=== PATIENT | female | born 1985 | race Caucasian/White ===

== ENCOUNTER 2017-09-04 09:42 | Inpatient (IN) | payer SELFPAY ==
[2017-09-04] MEDS: ONDANSETRON (ODT) 4 MG TAB ODT (10:51)
[2017-09-04] MEDS: HYDROCODONE/APAP (5/325) TAB PO ×2 (10:51→16:32)
[2017-09-04 11:04] LABS: ADD MAN DIFF? NO
[2017-09-04 11:11] LABS: ABNORMAL IP MESSAGE 1; BASOPHILS % 0.5 % (0.0-2.0); EOSINOPHILS # 0.2 10^3/ul (0.0-0.5); EOSINOPHILS % 2.1 % (0.0-7.0); HEMATOCRIT 34.3 % (37.0-47.0); HEMOGLOBIN 9.3 g/dl (12.0-16.0); LYMPHOCYTES # 2.9 10^3/ul (0.8-2.9); LYMPHOCYTES % 33.5 % (15.0-51.0); MEAN CORPUSCULAR HEMOGLOBIN 18.3 pg (29.0-33.0); MEAN CORPUSCULAR HGB CONC 27.1 g/dl (32.0-37.0); MEAN CORPUSCULAR VOLUME 67.7 fl (82.0-101.0); MEAN PLATELET VOLUME 9.5 fl (7.4-10.4); MONOCYTE # 0.4 10^3/ul (0.3-0.9); MONOCYTES % 4.5 % (0.0-11.0); NEUTROPHIL # 5.1 10^3/ul (1.6-7.5); NEUTROPHILS % 59.1 % (39.0-77.0); PLATELET COUNT 353 10^3/UL (140-415); RED BLOOD COUNT 5.07 10^6/ul (4.20-5.40); RED CELL DISTRIBUTION WIDTH 20.8 % (11.5-14.5)
[2017-09-04 11:11] LABS: WHITE BLOOD COUNT 8.7 10^3/ul (4.8-10.8)
[2017-09-04 11:12] LABS: POSITIVE DIFF @See below
[2017-09-04 11:14] LABS: ADD UMIC YES; UR ASCORBIC ACID NEGATIVE (NEGATIVE); UR BILIRUBIN (Dip) NEGATIVE (NEGATIVE); UR BLOOD (Dip) 2+ mg/dL (NEGATIVE); UR CLARITY SLIGHTLY CLOUDY (CLEAR); UR COLOR YELLOW (YELLOW); UR GLUCOSE (Dip) NEGATIVE (NEGATIVE); UR KETONES (Dip) NEGATIVE (NEGATIVE); UR LEUKOCYTE ESTERASE (Dip) 3+ Leu/ul (NEGATIVE); UR NITRITE (Dip) NEGATIVE (NEGATIVE); UR RBC 11 /HPF (0-5); UR SPECIFIC GRAVITY (Dip) 1.018 (1.003-1.030); UR SQUAMOUS EPITHELIAL CELL FEW /HPF (FEW); UR TOTAL PROTEIN (Dip) NEGATIVE (NEGATIVE); UR UROBILINOGEN (Dip) NEGATIVE (NEGATIVE); UR WBC 13 /HPF (0-5)
[2017-09-04 11:31] LABS: ALANINE AMINOTRANSFERASE 150 IU/L (13-69); ALBUMIN 4.1 g/dl (3.3-4.9); ALBUMIN/GLOBULIN RATIO 1.02; ALKALINE PHOSPHATASE 83 IU/L (42-121); ANION GAP 15 (8-16); ASPARTATE AMINO TRANSFERASE 82 IU/L (15-46); BLOOD UREA NITROGEN 11 mg/dl (7-20); CALCIUM 8.8 mg/dl (8.4-10.2); CARBON DIOXIDE 28 mmol/L (21-31); CHLORIDE 104 mmol/L (97-110); CREATININE 0.71 mg/dl (0.44-1.00); GLUCOSE 113 mg/dl (70-220); LIPASE 93 U/L (23-300); POTASSIUM 4.6 mmol/L (3.5-5.1); SODIUM 142 mmol/L (135-144); TOTAL PROTEIN 8.1 g/dl (6.1-8.1)
[2017-09-04] MEDS: PIPER-TAZO 3.375 GM IV (PMX) 100 ML IVPB (13:02)
[2017-09-04] MEDS ORDERED: NACL 0.9% 3 ML SYG IV (15:30)
[2017-09-04 15:49] LABS: IRON 28 ug/dl (35-150)
[2017-09-04 15:59] LABS: % IRON SATURATION 6 % SAT (22-52); TOTAL IRON BINDING CAPACITY 461 ug/dl (241-421)
[2017-09-04] MEDS: SOD CHLORIDE 0.45% 1,000 ML IV (16:19)
[2017-09-04 18:11] LABS: FERRITIN 16.8 ng/ml (6.2-137.0)
[2017-09-04] MEDS: IBUPROFEN 600 MG TAB PO (21:42)
[2017-09-05] MEDS: SOD CHLORIDE 0.45% 1,000 ML IV ×4 (01:21→21:12)
[2017-09-05 07:23] LABS: ADD MAN DIFF? NO
[2017-09-05 07:35] LABS: ABNORMAL IP MESSAGE 1; BASOPHILS % 0.5 % (0.0-2.0); EOSINOPHILS # 0.2 10^3/ul (0.0-0.5); EOSINOPHILS % 2.9 % (0.0-7.0); HEMATOCRIT 32.2 % (37.0-47.0); HEMOGLOBIN 8.8 g/dl (12.0-16.0); LYMPHOCYTES # 2.1 10^3/ul (0.8-2.9); LYMPHOCYTES % 34.7 % (15.0-51.0); MEAN CORPUSCULAR HEMOGLOBIN 18.6 pg (29.0-33.0); MEAN CORPUSCULAR HGB CONC 27.3 g/dl (32.0-37.0); MEAN CORPUSCULAR VOLUME 68.2 fl (82.0-101.0); MEAN PLATELET VOLUME 10.4 fl (7.4-10.4); MONOCYTE # 0.3 10^3/ul (0.3-0.9); MONOCYTES % 4.7 % (0.0-11.0); NEUTROPHIL # 3.4 10^3/ul (1.6-7.5); NEUTROPHILS % 56.9 % (39.0-77.0); PLATELET COUNT 326 10^3/UL (140-415); RED BLOOD COUNT 4.72 10^6/ul (4.20-5.40); RED CELL DISTRIBUTION WIDTH 21.3 % (11.5-14.5)
[2017-09-05 07:35] LABS: WHITE BLOOD COUNT 5.9 10^3/ul (4.8-10.8)
[2017-09-05 07:52] LABS: ALANINE AMINOTRANSFERASE 148 IU/L (13-69); ALBUMIN 3.5 g/dl (3.3-4.9); ALKALINE PHOSPHATASE 71 IU/L (42-121); ANION GAP 11 (8-16); ASPARTATE AMINO TRANSFERASE 88 IU/L (15-46); BLOOD UREA NITROGEN 13 mg/dl (7-20); CALCIUM 8.4 mg/dl (8.4-10.2); CARBON DIOXIDE 29 mmol/L (21-31); CHLORIDE 105 mmol/L (97-110); GLUCOSE 135 mg/dl (70-220); POTASSIUM 4.4 mmol/L (3.5-5.1); SODIUM 141 mmol/L (135-144)
[2017-09-05] MEDS: IBUPROFEN 600 MG TAB PO (08:45)
[2017-09-05] MEDS: HYDROCODONE/APAP (5/325) TAB PO (10:05)
[2017-09-05] MEDS: SOD FERRIC GLUC COMPLX 125 MG in SOD CHLORIDE 0.9% 100 ML IVPB (16:00)
[2017-09-05] MEDS: ONDANSETRON 4 MG INJ IV (20:12)
[2017-09-06] MEDS: SOD CHLORIDE 0.45% 1,000 ML IV (03:06)
[2017-09-06 05:55] LABS: ADD MAN DIFF? NO
[2017-09-06 06:05] LABS: ABNORMAL IP MESSAGE 1; BASOPHILS % 0.4 % (0.0-2.0); EOSINOPHILS # 0.2 10^3/ul (0.0-0.5); EOSINOPHILS % 2.3 % (0.0-7.0); HEMATOCRIT 30.6 % (37.0-47.0); HEMOGLOBIN 8.3 g/dl (12.0-16.0); LYMPHOCYTES # 2.3 10^3/ul (0.8-2.9); LYMPHOCYTES % 30.5 % (15.0-51.0); MEAN CORPUSCULAR HEMOGLOBIN 18.3 pg (29.0-33.0); MEAN CORPUSCULAR HGB CONC 27.1 g/dl (32.0-37.0); MEAN CORPUSCULAR VOLUME 67.5 fl (82.0-101.0); MEAN PLATELET VOLUME 10.5 fl (7.4-10.4); MONOCYTE # 0.4 10^3/ul (0.3-0.9); MONOCYTES % 5.1 % (0.0-11.0); NEUTROPHIL # 4.5 10^3/ul (1.6-7.5); PLATELET COUNT 322 10^3/UL (140-415); RED BLOOD COUNT 4.53 10^6/ul (4.20-5.40); RED CELL DISTRIBUTION WIDTH 20.8 % (11.5-14.5)
[2017-09-06 06:05] LABS: WHITE BLOOD COUNT 7.4 10^3/ul (4.8-10.8)
[2017-09-06 06:19] LABS: POSITIVE DIFF @See below
[2017-09-06 06:24] LABS: ALANINE AMINOTRANSFERASE 131 IU/L (13-69); ALBUMIN 3.2 g/dl (3.3-4.9); ALBUMIN/GLOBULIN RATIO 0.91; ALKALINE PHOSPHATASE 66 IU/L (42-121); ANION GAP 8 (8-16); ASPARTATE AMINO TRANSFERASE 60 IU/L (15-46); BILIRUBIN,INDIRECT 0.9 mg/dl (0-1.1); BILIRUBIN,TOTAL 0.9 mg/dl (0.2-1.3); BLOOD UREA NITROGEN 8 mg/dl (7-20); CALCIUM 8.6 mg/dl (8.4-10.2); CARBON DIOXIDE 31 mmol/L (21-31); CHLORIDE 107 mmol/L (97-110); CREATININE 0.79 mg/dl (0.44-1.00); GLUCOSE 110 mg/dl (70-220); POTASSIUM 4.2 mmol/L (3.5-5.1); SODIUM 142 mmol/L (135-144); TOTAL PROTEIN 6.7 g/dl (6.1-8.1)
[2017-09-06] MEDS: IBUPROFEN 600 MG TAB PO (07:46)
== END 2017-09-06 14:46 | disposition home or self-care (01) | DRG 445 ==
LOC: FTE 09:42 → PP2 13:05
DX: K80.70 Calculus of gallbladder and bile duct without cholecystitis without obstruction (principal); Z68.43 Body mass index [BMI] 50.0-59.9, adult; D50.9 Iron deficiency anemia, unspecified; N93.9 Abnormal uterine and vaginal bleeding, unspecified; E66.01 Morbid (severe) obesity due to excess calories
CPT/HCPCS: 76705; 78226; 80053; 81001; 81025; 82728; 83540; 83690; 85025